=== PATIENT | male | born 1990 | race Caucasian/White ===

== ENCOUNTER 2025-05-10 00:26 | Emergency (ER) | payer OTHER, SELFPAY ==
[2025-05-10 00:35] VITALS: BP 131/72; PULSE 81; TEMP 36.9; O2SAT 99; BMI 20.9
--- NOTE | 2025-05-10 00:49 | XR_ITS ---
[facility] [place] [id number] Patient Name: ERIC MAYORGA MRN: [id number] date: 1990 Sex: M Assigned Patient Location: ER Current Patient Location: Accession/Order Number: [id number] Exam Date: 05/10/2025 06:44 Report Date: 05/10/2025 06:45 At the request of: JOEY KERN MD Procedure: XR hand LT min 3V 3 views left hand plain film COMPARISON: None HISTORY: Left index finger injury ACUTE FINDINGS: Intra-articular mildly displaced fracture of the distal portion of the second proximal phalanx. DEGENERATIVE CHANGE: Unremarkable SOFT TISSUE FINDINGS: Unremarkable JOINT EFFUSION: None POSTOP CHANGES: None BONY MINERALIZATION: Adequate XR/XR hand LT min 3V IMPRESSION: Second proximal phalanx fracture. Impression dictated by: Lico Ambriz M.D. 05/10/2025 6:45 AM Dictation Location: [place] [id number] Electronically authenticated by: [id number] Y Date: 05/10/2025 06:45
--- NOTE | 2025-05-10 03:03 | PC.NURSE ---
i gave this patient verbal and written discharge along with 1 Rx and a copy of workers compensation papers, and this patient voices yes to understanding these. at time of discharge this patient voices no concerns, needs and this patient shows no signs of distress
--- NOTE | 2025-05-10 03:41 | ED.UPPEXIN1 ---
HPI HPI - Extremity Injury (Upper) General Chief Complaint: Extremity Injury, Upper Stated Complaint: WORK INJURY LEFT POINTER FINGER Time Seen by Provider: 05/10/25 00:43 Source: patient Mode of arrival: walk-in Limitations: no limitations History of Present Illness HPI narrative: The patient is coming to the ER with a work injury. He was using the electric screwdriver and apparently the electric screwdriver got attached to the glove that he was wearing in his left hand and the index finger got twisted under power of the electric screwdriver causing him the injury that he is presenting with Related Data Previous Rx's ?Medication ?Instructions ?Recorded diclofenac sodium 75 mg 75 mg PO BID PRN pain #20 tabs 05/10/25 tablet,delayed release oxycodone-acetaminophen 5 mg-325 1 tab PO Q8H PRN pain 3 days #9 05/10/25 mg tablet (Percocet) tabs Allergies Allergy/AdvReac Type Severity Reaction Status Date / Time No Known Drug Allergies Allergy Verified 05/10/25 00:34 Review of Systems ROS Status of ROS 10 or more systems reviewed and unremarkable except as noted in history and below PFSH PFSH Social History Little interest or pleasure in doing things: not at all Feeling down, depressed, or hopeless: not at all Exam Narrative Exam Narrative: Nurses notes and vital signs reviewed and patient is not hypoxic. General: Well-appearing and in no apparent distress. Left upper extremity: There is a significant swelling of the left index finger mostly the proximal phalanx there is no vascular injury detected. Limitation of movement due to pain but there is no obvious deformity Constitutional Vital Signs, click to edit/add: Last Vital Signs Temp 98.4 F 05/10/25 00:35 Pulse 81 05/10/25 00:35 BP 131/72 05/10/25 00:35 Pulse Ox 99 05/10/25 00:35 O2 Del Method Room Air 05/10/25 00:35 Course Vital Signs Vital signs: Vital Signs Temperature 98.4 F 05/10/25 00:35 Pulse Rate 81 05/10/25 00:35 Blood Pressure 131/72 05/10/25 00:35 Pulse Oximetry 99 05/10/25 00:35 Oxygen Delivery Method Room Air 05/10/25 00:35 Temperature 98.4 F 05/10/25 00:35 Pulse Rate 81 05/10/25 00:35 Blood Pressure 131/72 05/10/25 00:35 Pulse Oximetry 99 05/10/25 00:35 Oxygen Delivery Method Room Air 05/10/25 00:35 MDM - Extremity Injury (Upper) MDM Narrative Medical decision making narrative: X-ray of the patient left hand shows an obvious proximal phalanx fracture of the index finger with possible commuted and extension into the joint space I did explain to the patient that the prelim reading showing a fracture in he had a splint applied The patient provided with Percocet for pain control in addition to Voltaren to go home with he was referred to orthopedic to be seen at the outpatient I did explain to the patient the importance of following up with orthopedic The patient will be called later with the result of the official reading of the x-ray pt was called and voice left to call back to ED Discharge Plan Discharge Chief Complaint: Extremity Injury, Upper Clinical Impression: Finger fracture, left Patient Disposition: Home, Self-Care Time of Disposition Decision: 02:38 Condition: Good Prescriptions / Home Meds: New diclofenac sodium 75 mg tablet,delayed release (DR/EC) 75 mg PO BID PRN (Reason: pain) Qty: 20 0RF oxycodone-acetaminophen [Percocet] 5-325 mg tablet 1 tab PO Q8H PRN (Reason: pain) 3 Days Qty: 9 0RF Print Language: Palestinian Instructions: Finger Fracture (ED) Referrals: Dr Matthew Kelly [Other] - As soon as possible Physician,Non-Staff, MD [Primary Care Provider] - 1 week Discharge Date/Time: 05/10/25 03:00
== END 2025-05-10 03:00 | disposition home or self-care (01) ==
PROVIDERS: Emergency Provider Emergency Medicine
DX: S62.611A Displaced fracture of proximal phalanx of left index finger, initial encounter for closed fracture (principal); X50.1XXA Overexertion from prolonged static or awkward postures, initial encounter
CPT/HCPCS: 29130; 73130; 99284